=== PATIENT | female | born 1990 | race Caucasian/White ===

== ENCOUNTER 2017-09-30 12:00 | Inpatient (IN) | payer BC, OTHER ==
[~2017-09-30] VITALS: Ht 172.7 cm; Wt 70.3 kg
--- NOTE | 2017-09-30 14:00 | NUR ---
PREADMISSION NOTE Patient met in Intake, vitals BP 107/73, pulse 84, RR 16, oxygen saturation 99 percent on room air. Pt stating she has allergy to penicillin, reaction is a rash, last exposure as an . Pt admitted for dependency and medically supervised detox from Heroin, ETOH, crack cocaine, Xanax. Pt very irritable, anxiou, telling nurse to "hurry up" multiple times to intake questions Stated she was going to leave and needed to speak to the director. Pt would not answer any further questions from RN. RN notified DON of Pt stating she was going to leave and request to speak to director. Above endorsed to GRETA Patino, who is now assigned as nurse for the patient.
[2017-09-30] MEDS ORDERED: DICYCLOMINE HCL 20 MG TABLET PO PRN (14:15)
[2017-09-30] MEDS ORDERED: ONDANSETRON 4 MG/2 ML VIAL IM PRN (14:15)
[2017-09-30] MEDS ORDERED: ONDANSETRON ODT 4 MG TAB.RAPDIS SL PRN (14:15)
[2017-09-30] MEDS ORDERED: diphenhydrAMINE 50 MG CAPSULE PO PRN (14:15)
[2017-09-30] MEDS ORDERED: MAG HYDROX/AL HYDROX/SIMETH 30 ML LIQUID UDC PO PRN (14:15)
[2017-09-30] MEDS ORDERED: LOPERAMIDE HCL 2 MG CAPSULE PO PRN ×2 (14:15)
[2017-09-30] MEDS ORDERED: MIRALAX 17 GM POWD.PACK PO PRN (14:15)
[2017-09-30] MEDS ORDERED: BUPRENORPHINE HCL 2 MG TAB.SUBL SL PRN (14:15)
[2017-09-30] MEDS ORDERED: NICOTINE 14 MG/24HR PATCH TD PRN (14:30)
[2017-09-30] MEDS ORDERED: NICOTINE POLACRILEX 4 MG GUM-PK OF TEN BC PRN (14:30)
[2017-09-30] MEDS ORDERED: IBUP-1953 PO (14:34)
[2017-09-30] MEDS ORDERED: BUPR100T6 PO (14:34)
[2017-09-30] MEDS ORDERED: CLIN300C11 PO (14:34)
[2017-09-30] MEDS ORDERED: CLON0.1T PO (14:34)
[2017-09-30] MEDS ORDERED: TRAZ-144 PO (14:34)
[2017-09-30 14:40] VITALS: BP 107/73
[2017-09-30 14:43] LABS: *URINE HCG, QUAL NEGATIVE (NEGATIVE)
[2017-09-30] MEDS ORDERED: DIAZEPAM 10 MG TABLET PO SCH ×2 (15:00→21:00)
[2017-09-30] MEDS: BUPRENORPHINE HCL 2 MG TAB.SUBL SL SCH ×3 (15:01→21:37)
[2017-09-30 15:58] LABS: *AMPHETAMINE, URINE NEGATIVE (NEGATIVE); *BARBITURATE, URINE NEGATIVE (NEGATIVE); *CANNABINOID, URINE NEGATIVE (NEGATIVE); *COCCAINE, URINE POSITIVE (NEGATIVE); *OPIATE, URINE NEGATIVE (NEGATIVE); *PHENCYCLIDINE SCREEN,URINE NEGATIVE (NEGATIVE)
[2017-09-30 16:00] VITALS: BP 104/66
--- NOTE | 2017-09-30 16:20 | NUR ---
ADMISSION: A 27 Y O FEMALE ADMITTED FOR MEDICALLY SUPERVISED WITHDRAWAL OF BENZO/ETOH/OPIATE/COCAINE DEPENDENCE. SHE REPORTS SNORTING XANAX 12-20 MG DAILY X 6 MONTHS. LAST USES AT 0100 ON 09/29/17. SHE ASLO DRINKS 1 PINT OF RUM DAILY AND LAST DRANK AT 0100 ON 09/29/17. SHE REPORTS USING HEROIN IV 2 GMS DAILY. LAST USED AT 0100 ON 09/29/17. SHE ALSO REPORTS SNORTING/SMOKING COCAINE. LAST USED 0100 AT 09/30/17. 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 HOME MEDS BROUGHT IN AND RECONCILED. PT PRESENTS WITH IRRITABLE MOOD AND CONGRUENT AFFECT. SHE IS FIDGETY,RESTLESS AND C/O BODY ACHES,SWEATS CHILLS, AND ANXIETY. COWS 13 CIWA 13. SHE DENIES SZ HX. SHE DENIES PRIMARY MD. SHE DENIES S/I AND H/I. MD ASSESSED PT AND PLACED ORDERS FOR VALIUM/SUBUTEX TAPER. ADMINISTERED VALIUM AND SUBUTEX ORDERED TO MANAGE S/S OF W/D. ORIENTED PT TO STAFF AND UNIT. REASSURED PT THAT NURSING STAFF IS AVAILABLE 24 HOURS. WILL CONTINUE TO MONITOR AND OFFER SUPPORT.
[2017-09-30 16:38] LABS: EOSINOPHILS # (AUTO) 0.2 K/uL (0.0-0.7); EOSINOPHILS % (AUTO) 4.7 % (0.0-7.0); HEMATOCRIT 36.3 % (37-47); HEMOGLOBIN 12.1 G/DL (12.0-16.0); LYMPHOCYTES # (AUTO) 1.7 K/UL (0.8-4.8); LYMPHOCYTES % (AUTO) 39.6 % (20.5-51.5); MEAN CORPUSCULAR HEMOGLOBIN 28.4 UUG (27.0-31.0); MEAN CORPUSCULAR HGB CONC 33 g/dL (32.0-37.0); MEAN CORPUSCULAR VOLUME 85.1 FL (81.0-99.0); MONOCYTES # (AUTO) 0.4 K/UL (0.1-1.30); MONOCYTES % (AUTO) 10.3 % (0.0-11.0); NEUTROPHILS # (AUTO) 1.9 K/UL (1.8-8.9); NEUTROPHILS % (AUTO) 44.4 % (38.5-71.5); PLATELET COUNT (AUTO) 316 K/UL (150-450); RED BLOOD CELL COUNT(AUTO) 4.26 MIL/UL (4.2-5.4); WHITE BLOOD COUNT (AUTO) 4.2 K/UL (4.0-11.2)
[2017-09-30 16:47] LABS: ETHANOL < 3 MG/DL (0-0)
[2017-09-30 16:48] LABS: ALANINE AMINOTRANSFERASE 622 U/L (14-59); ALKALINE PHOSPHATASE 129 U/L (50-136); ASPARTATE AMINOTRANSFERASE 315 U/L (15-37); BILIRUBIN,TOTAL 0.6 mg/dL (0.2-1.0); CARBON DIOXIDE 27 mmol/L (21-32); CHLORIDE 103 mmol/L (98-107); CREATININE 1.1 mg/dL (0.6-1.3); GLUCOSE 122 mg/dL (74-106); POTASSIUM 3.8 mmol/L (3.5-5.1); TOTAL PROTEIN, SERUM 7.8 g/dL (6.4-8.2); UREA NITROGEN, BLOOD 16 mg/dL (7-18)
[2017-09-30] MEDS ORDERED: LORAZEPAM 1 MG TABLET PO PRN ×2 (17:00)
[2017-09-30] MEDS: LORAZEPAM 1 MG TABLET PO SCH ×2 (18:09→21:36)
[2017-09-30] MEDS: GABAPENTIN 400 MG CAPSULE PO SCH ×2 (18:09→21:38)
--- NOTE | 2017-09-30 18:39 | NUR ---
END OF SHIFT: NEW ADMISSION STARTED ON ATIVAN/SUBUTEX THIS AFTERNOON AND EFFECTIVE. PT'S LAST COWS 10 CIWA 5. PT IS EATING 75% OF MEALS AND STATES SHE FEELS BETTER DUE TO MEDICATION. WILL PASS SHIFT REPORT TO ONCOMING NIGHT NURSE.
--- NOTE | 2017-09-30 19:30 | NUR ---
Start of Shift Notes Received a 27 y/o female admitted 09/30/2017 for Opiates, ETOH, Benzos, cocaine dependence. Px has allergy on PCN, on regular diet and on Full Code. No seizure hx but on fall precaution. During the rounds at 1930, px appears emotional, anxious and depressed. Px has healing wound with 6 efe on medial middle right thigh. Px has generalized body aches of 7/10. COWS 7, CIWA 7. All safety measures in place per hospital policy. Bed in lowest position, side rails up x2, call-light within reach. We'll continue to monitor.
[2017-09-30 20:00] VITALS: BP 110/72
[2017-09-30] MEDS: TOPIRAMATE 25 MG TABLET PO SCH (21:37)
[2017-09-30] MEDS: CLONIDINE HCL 0.1 MG TABLET PO PRN (21:37)
--- NOTE | 2017-09-30 21:37 | NUR ---
PRN Clonidine Px verbalized increase anxiety and requested to have Clonidine. Clonidine 0.1 mg/tab, 1 tab given PO as PRN med. We'll continue to monitor.
[2017-10-01] VITALS: BP 113/90
--- NOTE | 2017-10-01 | NUR ---
COWS and CIWA deferred COWS and CIWA deferred due to the px is sleeping, to assess if the px is awake per doctor's order. Respirations are even and unlabored. We'll continue to monitor.
[2017-10-01 04:00] VITALS: BP 99/60
--- NOTE | 2017-10-01 07:27 | NUR ---
End of Shift Notes Received a 27 y/o female admitted 09/30/2017 for Opaiates, ETOH, Benzos dependence. Px has allergy on PCN, on regular diet and on Full Code. No seizure hx but on fall precaution. During the shift, px appears emotional, anxious and depressed. Px has healing wound with 6 efe on medial middle right thigh. Px has generalized body aches of 7/10. Last COWS 7, CIWA 7. Oral intake of 700 ml, voided 2x, no BM. Slept for 6 hrs. All safety measures in place per hospital policy. Bed in lowest position, side rails up x2, call-light within reach. We'll continue to monitor.
[2017-10-01 08:00] VITALS: BP 99/66
--- NOTE | 2017-10-01 08:00 | NUR ---
START OF SHIFT NOTE 27 year old female admitted 09/30/17 for depended and medical detox from Xanax, ETOH, Heroin and Cocaine. History of Hep C, Depression. Inner right thigh with wound with partial efe and area with yellow eschar. [place] to be removed today. Report received from night RN. Last COWS 7 and CIWA 7 at 8 PM. Slept 6 hours. Given Clonidine PRN x 1. 0800 nursing rounds with pt sleeping, alert to verbal, bed in low position and locked, side rails up x 2, call gonzalez within reach. Will continue to monitor.
[2017-10-01] MEDS: GABAPENTIN 400 MG CAPSULE PO SCH ×3 (08:46→17:00)
[2017-10-01] MEDS: LORAZEPAM 1 MG TABLET PO SCH ×3 (08:46→20:57)
[2017-10-01] MEDS: MULTIVITAMINS,THERAPEUTIC TABLET PO SCH (08:46)
[2017-10-01] MEDS: TOPIRAMATE 25 MG TABLET PO SCH ×2 (08:46→20:58)
[2017-10-01] MEDS: BUPRENORPHINE HCL 2 MG TAB.SUBL SL SCH ×4 (08:47→20:58)
[2017-10-01] MEDS ORDERED: DIAZEPAM 10 MG TABLET PO SCH (09:00)
[2017-10-01] MEDS ORDERED: TUBERCULIN,PURIF.PROT.DERIV. 5 TU/0.1 ML TEST ID ONE (09:00)
[2017-10-01 11:07] LABS: HEPATITIS B SURFACE AG Negative (Negative)
[2017-10-01 12:00] VITALS: BP 99/55
[2017-10-01] MEDS ORDERED: TRAZODONE 50 MG TABLET PO PRN (15:15)
[2017-10-01 16:00] VITALS: BP 106/78
[2017-10-01] MEDS: buPROPion SR 100 MG TABLET.SA PO SCH (16:10)
--- NOTE | 2017-10-01 17:44 | NUR ---
MEDICATION REFUSED Pt states she feels over sedated. Refuses medications other than ativan and Subutex. RN notes pt very drowsy, difficult to keep eyes open, falling asleep mid-sentence. Pt directed to lie down. Awakens to verbal but when not stimulated falls asleep. BP 110/72, RR 16, O2 sat 100 percent, pulse 78.
--- NOTE | 2017-10-01 19:00 | NUR ---
Start of Shift Patient Received. Patient is a 27 year old female that was admitted on 09/30/17 for Benzos, ETOH, and Opiate Dependence under the care of Dr. Brown. Patient is currently receiving a 5 day Subutex and 5 day Ativan taper. Patient verbalizes allergies to PCN, wishes to be full code, following a regular diet, placed on fall precautions. Skin is noted with 6 Twila to the right inner leg due to injury priot to admission with no new orders noted or endorsed over. Past medical history of HCV and Depression. Per endorsement, patient noted with multiple epsiodes of behavior with administration staff aware. Last noted COWS 1 and CIWA 2. All needs attended to promptly. Will continue plan of care as ordered.
--- NOTE | 2017-10-01 19:37 | NUR ---
END OF SHIFT NOTE 27 year old female admitted 09/30/17 for depended and medical detox from Xanax, ETOH, Heroin and Cocaine. History of Hep C, Depression. Inner right thigh with wound with partial efe and area with yellow eschar vs. yellow scab. RN asked Dr. Brown this am to look at wound and also requested if RN was to remove efe or if MD wound be removing efe. MD stated he would look at wound. Pt very drowsy at 1700, 1700 dose neurontin not given due to drowsiness and Pt stating she did not want any medication other than ativan and Subutex. At 1840, pt came to nurse station demanding her medication and when next doses of medication would be given. Pt requesting 1700 dose of neurontin. Neurontin given. Last COWS 1, last CIWA 2 Report given to night RN. Bed in low position and locked, side rails up x 2, call gonzalez within reach.
[2017-10-01 20:44] VITALS: BP 120/84
[2017-10-01] MEDS: MELATONIN 3 MG TABLET PO SCH (20:57)
[2017-10-01] MEDS: GABAPENTIN 300 MG CAPSULE PO SCH (20:58)
[2017-10-02 00:29] VITALS: BP 105/72
[2017-10-02] MEDS: IBUPROFEN 600 MG TABLET PO PRN ×2 (03:59→11:02)
[2017-10-02 04:00] VITALS: BP 111/73
[2017-10-02] MEDS: CLONIDINE HCL 0.1 MG TABLET PO PRN ×2 (04:03→11:03)
--- NOTE | 2017-10-02 04:05 | NUR ---
PRN Medication Administration Patient noted awake and verbalizing increased anxiety, agitation, and pain 5/10 due to toothache. Patient given PRN Motrin and Clonidine. Will continue to monitor for effectiveness of medication.
--- NOTE | 2017-10-02 05:00 | NUR ---
PRN Medication Reassessment Patient is in bed sleeping. Breathing even and non labored. No signs of pain or discomfort noted. Patient was given PRN Clonidine for increased anxiety and agitation. PRN Motrin for pain 5/10 due to toothache. Medications noted to be effective as evidence of patient sleeping well with no interruptions.
--- NOTE | 2017-10-02 07:02 | NUR ---
End of Shift Patient is in bed sleeping. Breathing even and non labored. No signs of pain or discomfort noted. Patient is a 27 year old female that was admitted on 09/30/17 for Benzos, ETOH, and Opiate Dependence and is currently receiving a 5 day Subutex and 5 day Ativan taper. Allergies to PCN, Full Code, Regular Diet, placed on fall precautions. Skin is noted with 6 Twila to the right inner leg due to injury prior to admission. Past medical history of HCV and Depression. Patient received PRN Motrin for toothache and Clonidine for increased agitation and anxiety. PRN medications noted to be effective. No episodes of behavior noted. Last noted COWS 4 and CIWA 4. All needs attended to promptly. Will endorse to continue plan of care as ordered.
--- NOTE | 2017-10-02 07:55 | NUR ---
START OF SHIFT Rcvd endorsement from ongoing nurse, client is in room, she is a/o x 4, she presents with anxious mood, flat affect, flushed face, moist skin, goosebump, and dilated pupils. She reports chills, cold, abdominal cramps, restless legs, and fatigue. She denies any N/V/D. She denies any SI/HI. Encourage client to attend to group therapy for skills to maintain sober. Encourage client to increase PO fluid intake as tolerated to facilitate detox. Client is a 27 y/o female, admitted to [facility] for withdrawal from alcohol, alprazolam and heroin. She is on 5 day Ativan/ 5 day Subutex taper, tolerating well (day 2). Last CIWA 4 /COWS 4 @ 0400. PRN Clonidine 0.1mg PO for anxiety, agitation, chills, sweats, restlessness, Motrin 600mg PO for left lower toothache, noted effective. Client slept 7 hrs. She denies a hx of withdrawal-induced seizures, Client reports allergy to Penicillin , she is full code, regular diet. Side rails x 2 up/padded for seizure precautions. Call light within reach.
[2017-10-02 08:01] VITALS: BP 105/64
[2017-10-02] MEDS: LORAZEPAM 1 MG TABLET PO SCH ×3 (08:22→17:30)
[2017-10-02] MEDS: buPROPion SR 100 MG TABLET.SA PO SCH (08:23)
[2017-10-02] MEDS: MULTIVITAMINS,THERAPEUTIC TABLET PO SCH (08:23)
[2017-10-02] MEDS: GABAPENTIN 400 MG CAPSULE PO SCH ×3 (08:24→17:30)
[2017-10-02] MEDS: TOPIRAMATE 25 MG TABLET PO SCH ×2 (08:24→21:07)
[2017-10-02] MEDS ORDERED: BUPRENORPHINE HCL 2 MG TAB.SUBL SL SCH (09:00)
[2017-10-02] MEDS ORDERED: DIAZEPAM 5 MG TABLET PO SCH (09:00)
[2017-10-02] MEDS: ACETAMINOPHEN 325 MG TABLET PO PRN ×2 (09:30→17:30)
--- NOTE | 2017-10-02 09:30 | NUR ---
PRN Tylenol 650mg PO for left lower toothache 04/02. Will continue to monitor. Call light within reach.
--- NOTE | 2017-10-02 10:30 | NUR ---
Reassessment PRN Tylenol 650mg PO pain 12/03, but tolerable.
--- NOTE | 2017-10-02 11:02 | NUR ---
PRN Motrin 600mg PO, Clonidine 0.1mg PO for toothache (left lower), 6/10, irritability and anxiety respectively. Call light within reach.
[2017-10-02] MEDS ORDERED: LORAZEPAM 1 MG TABLET PO ONE (12:00)
--- NOTE | 2017-10-02 12:02 | NUR ---
Reassessment PRN Motrin 600mg PO, Clonidine 0.1mg PO toothache 01/03, she appears less irritable and less anxious.
[2017-10-02 12:38] VITALS: BP 103/63
[2017-10-02] MEDS: BENZOCAINE ORAL CARE 12 ML BOTTLE MM PRN ×2 (13:43→21:59)
--- NOTE | 2017-10-02 13:43 | NUR ---
PRN Ambesol MM to left lower tooth, pain 4/10.
--- NOTE | 2017-10-02 14:43 | NUR ---
Reassessment PRN Ambesol MM to left lower tooth, pain 210, but tolerable.
[2017-10-02] MEDS: CLINDAMYCIN HCL 300 MG CAPSULE PO SCH ×2 (14:59→21:06)
[2017-10-02] MEDS: BUPRENORPHINE HCL 2 MG TAB.SUBL SL SCH ×2 (14:59→21:07)
[2017-10-02 16:55] VITALS: BP 105/64
--- NOTE | 2017-10-02 17:30 | NUR ---
PRN Tylenol 650mg PO for left lower toothache 06/02. Will continue to monitor. Call light within reach.
--- NOTE | 2017-10-02 18:30 | NUR ---
Reassessment PRN Tylenol 650mg PO pain 12/03, but tolerable.
--- NOTE | 2017-10-02 19:30 | NUR ---
END OF SHIFT Client is a 27 y/o female, admitted to [facility] for withdrawal from alcohol, alprazolam and heroin. She is on 5 day Ativan/ 5 day Subutex taper, tolerating well (day 2). Last CIWA 4 /COWS 4 @ 0400. PRN Clonidine 0.1mg PO for anxiety, agitation, chills, sweats, restlessness, Motrin 600mg, Tylenol 650mg PO x 2, Ambesol MM for left lower toothache, noted effective. Client not compliant with group therapy d/t withdrawal symptoms. She denies a hx of withdrawal-induced seizures, Client reports allergy to Penicillin , she is full code, regular diet. Side rails x 2 up/padded for seizure precautions. Call light within reach.
[2017-10-02 20:00] VITALS: BP 114/73
--- NOTE | 2017-10-02 20:00 | NUR ---
Start of Shift Pt is a 27 year old female admitted for Benzo/ETOH/Opiate dependence, placed on 5 day Ativan and 5 day Subutex taper. Pt reports using Xanax (nasal) 12-20mg, ETOH 1 pint, Heroin IV 1gm and Cocaine (nasal/smoke) 1 gm. PMH: HCV, depression, efe to right inner thigh (removed on 10/02/2017) and hx of seizure. Pt reports allergies to PCN, fall/seizure precautions, regular diet and full code. Upon assessment, pt is agitated/irritated, reports feeling anxious, is demanding in loud tone voice, reports muscle/joint aches, skin is flushed/clammy, tremors felt, respirations even/unlabored, denies n/v/d, denies SOB/chest pain, medications due. Safety measures in place, call light within reach, side rails up x2, bed locked and in low position. Will continue to monitor.
[2017-10-02] MEDS ORDERED: LORAZEPAM 1 MG TABLET PO SCH (21:00)
[2017-10-02] MEDS: MELATONIN 3 MG TABLET PO SCH (21:00)
[2017-10-02] MEDS: GABAPENTIN 300 MG CAPSULE PO SCH (21:07)
[2017-10-02] MEDS: LACTOBACILLUS RHAMNOSUS GG 1 EACH CAPSULE PO SCH (21:07)
--- NOTE | 2017-10-02 21:59 | NUR ---
PRN Administration Benzocaine given for left lower tooth ache, rated 5/[address], will continue to monitor.
--- NOTE | 2017-10-02 22:59 | NUR ---
PRN Reassessment Pt reports benzocaine effective. Reports no more pain. Safety measures in place, will continue to monitor.
[2017-10-02] MEDS ORDERED: diphenhydrAMINE 50 MG CAPSULE PO ONE (23:35)
[2017-10-02] MEDS ORDERED: diphenhydrAMINE 50 MG CAPSULE PO PRN (23:35)
[2017-10-03] VITALS: BP 113/68
[2017-10-03] MEDS ORDERED: diphenhydrAMINE 50 MG CAPSULE ONE (00:06)
--- NOTE | 2017-10-03 00:14 | NUR ---
PRN Administration Pt refused previously scheduled Melatonin. Benadryl 50mg x1 administered for sleep Safety measures in place, will continue to monitor.
--- NOTE | 2017-10-03 01:14 | NUR ---
PRN Reassessment Upon reassessment, pt is in bed sleeping, respirations even/unlabored. Safety measures in place, will continue to monitor.
--- NOTE | 2017-10-03 04:00 | NUR ---
Pt refused to be woken up for 0400 VS. COWS/CIWA deferred due to pt sleeping, to assess while pt is awake as ordered. Safety measures in please, will continue to monitor.
--- NOTE | 2017-10-03 07:00 | NUR ---
End of Shift Pt is a 27 year old female admitted for Benzo/ETOH/Opiate dependence, placed on 5 day Ativan and 5 day Subutex taper. Pt reports using Xanax (nasal) 12-20mg, ETOH 1 pint, Heroin IV 1gm and Cocaine (nasal/smoke) 1 gm. PMH: HCV, depression, efe to right inner thigh (removed on 10/02/2017) and hx of seizure. Pt reports allergies to PCN, fall/seizure precautions, regular diet and full code. During shift, pt was agitated/irritated, reported feeling anxious, was demanding in loud tone voice, reported muscle/joint aches, skin is flushed/clammy, tremors felt scheduled taper medications administered, CIWA 7 and COWS 7. Benzocaine PRN for tooth ache and Benadryl 50mg x1 administered for sleep. Pt slept for 5 hours, intake of 2091ml PO, voids x4 and stool x0. Safety measures in place, call light within reach, side rails up x2, bed locked and in low position. Endorsed to day shift nurse.
--- NOTE | 2017-10-03 07:37 | NUR ---
START OF SHIFT Rcvd endorsement from ongoing nurse, client is in room, she is a/o x 4, she presents with depressed mood, enlarged pupils. She reports body aches,restless legs and fatigue. She denies any N/V/D. She denies any SI/HI. Client is on Clindamycin 300mg PO TID for infection on R inner thigh, 6 efe removed 10/02/17, scant purulent drainage noted. Encourage client to attend to group therapy for skills to maintain sober. Encourage client to increase PO fluid intake as tolerated to facilitate detox. Client is a 27 y/o female, admitted to [facility] for withdrawal from alcohol, alprazolam and heroin. She is on 5 day Ativan/ 5 day Subutex taper, tolerating well (day 3). Last CIWA 7 /COWS 7 @ 2400. PRN Benadryl 50mg PO for inability to sleep, slept 5 hrs. She denies a hx of withdrawal-induced seizures, Client reports allergy to Penicillin , she is full code, regular diet. Side rails x 2 up/padded for seizure precautions. Call light within reach.
--- NOTE | 2017-10-03 08:45 | NUR ---
Zero induration noted on L forearm TB site
[2017-10-03 08:55] VITALS: BP 123/87
[2017-10-03] MEDS ORDERED: DIAZEPAM 5 MG TABLET PO SCH (09:00)
[2017-10-03] MEDS: GABAPENTIN 400 MG CAPSULE PO SCH (09:15)
[2017-10-03] MEDS: TOPIRAMATE 25 MG TABLET PO SCH ×2 (09:16→20:44)
[2017-10-03] MEDS: MULTIVITAMINS,THERAPEUTIC TABLET PO SCH (09:16)
[2017-10-03] MEDS: LORAZEPAM 1 MG TABLET PO SCH ×2 (09:16→14:33)
[2017-10-03] MEDS: CLINDAMYCIN HCL 300 MG CAPSULE PO SCH ×3 (09:16→20:45)
[2017-10-03] MEDS: LACTOBACILLUS RHAMNOSUS GG 1 EACH CAPSULE PO SCH ×2 (09:16→20:43)
[2017-10-03] MEDS: BUPRENORPHINE HCL 2 MG TAB.SUBL SL SCH ×3 (09:16→20:46)
[2017-10-03] MEDS: buPROPion SR 100 MG TABLET.SA PO SCH (09:16)
[2017-10-03] MEDS: BENZOCAINE ORAL CARE 12 ML BOTTLE MM PRN ×2 (09:26→17:53)
[2017-10-03] MEDS: IBUPROFEN 600 MG TABLET PO PRN (09:26)
[2017-10-03] MEDS: CLONIDINE HCL 0.1 MG TABLET PO PRN ×2 (09:26→18:34)
--- NOTE | 2017-10-03 09:26 | NUR ---
PRN Clonidine 0.1mg PO, Motrin 600mg PO and Anbesol MM administered for anxiety, irritability, and Left lower toothache 07/03 respectively. Call light within reach.
--- NOTE | 2017-10-03 10:26 | NUR ---
Reassessment PRN Clonidine 0.1mg PO, Motrin 600mg PO and Anbesol MM client expressers relief from anxiety, irritability, and decreased Left lower toothache 2/10, but tolerable.
[2017-10-03] MEDS: KETOROLAC TROMETHAMINE 30 MG INJ IM PRN ×2 (11:40→14:33)
--- NOTE | 2017-10-03 11:40 | NUR ---
ONE TIME Subutex 4mg SL, Ativan 2mg PO for COWS 12,CIWA 10 anxiety, irritability,
[2017-10-03 12:00] VITALS: BP 113/77
[2017-10-03] MEDS ORDERED: BUPRENORPHINE HCL 2 MG TAB.SUBL SL ONE (12:00)
[2017-10-03] MEDS ORDERED: LORAZEPAM 1 MG TABLET PO ONE (12:00)
--- NOTE | 2017-10-03 12:10 | NUR ---
Reassessment ONE TIME Subutex 4mg SL COWS 8.
--- NOTE | 2017-10-03 12:40 | NUR ---
Reassessment ONE TIME Ativan 2mg PO CIWA 7.
[2017-10-03] MEDS: GABAPENTIN 300 MG CAPSULE PO SCH ×2 (14:32→20:43)
[2017-10-03] MEDS: BACLOFEN 10 MG TABLET PO SCH ×2 (14:33→20:44)
--- NOTE | 2017-10-03 14:33 | NUR ---
PRN Toradol 30mg Inj IM administered to R buttock for toothache 09/02.
--- NOTE | 2017-10-03 15:03 | NUR ---
Reassessment PRN Toradol 30mg Inj IM effective, toothache 0/10.
[2017-10-03 16:55] VITALS: BP 108/83
--- NOTE | 2017-10-03 17:53 | NUR ---
PRN Anbesol MM administered Left lower toothache 04/02. Call light within reach.
--- NOTE | 2017-10-03 18:34 | NUR ---
PRN Clonidine 0.1mg PO administered for anxiety, irritability. Call light within reach.
--- NOTE | 2017-10-03 18:53 | NUR ---
Reassessment PRN Anbesol MM effective 0/10.
--- NOTE | 2017-10-03 19:16 | NUR ---
END OF SHIFT Client is a 27 y/o female, admitted to [facility] for withdrawal from alcohol, alprazolam and heroin. She is on 5 day Ativan/ 5 day Subutex taper, tolerating well (day 3). Last CIWA 6 /COWS 7 @ 1600. PRN Clonidine 0.1mg PO for anxiety, agitation @ 0926 noted effective, another dose given @ 1834 incoming nurse to reassess. Motrin 600mg PO for headache, Ambesol MM x 2 and Toradol 30mg Inj IM for left lower toothache, noted effective. Client not compliant with group therapy d/t withdrawal symptoms. She denies a hx of withdrawal-induced seizures, Client reports allergy to Penicillin , she is full code, regular diet. Side rails x 2 up/padded for seizure precautions. Call light within reach.
[2017-10-03 20:00] VITALS: BP 109/77
--- NOTE | 2017-10-03 20:00 | NUR ---
Start of Shift Pt is a 27 year old female admitted for Benzo/ETOH/Opiate dependence, placed on 5 day Ativan and 5 day Subutex taper. Pt reports using Xanax (nasal) 12-20mg, ETOH 1 pint, Heroin IV 1gm and Cocaine (nasal/smoke) 1 gm. PMH: HCV, depression, efe to right inner thigh (removed on 10/02/2017) and hx of seizure. Pt reports allergies to PCN, fall/seizure precautions, regular diet and full code. Upon assessment, pt is irritated, demanding in loud tone voice, reports feeling chills, skin is clammy, respirations even/unlabored, denies n/v/d, denies SOB/chest pain, medications due. Safety measures in place, call light within reach, side rails up x2, bed locked and in low position. Will continue to monitor.
[2017-10-03] MEDS: MELATONIN 3 MG TABLET PO SCH (20:46)
[2017-10-03] MEDS ORDERED: LORAZEPAM 1 MG TABLET PO SCH (21:00)
--- NOTE | 2017-10-03 21:40 | NUR ---
Pt placed on room restriction due to non-compliance with rules and regulation regarding physical contact with other clients.
[2017-10-04] VITALS: BP 103/71
--- NOTE | 2017-10-04 04:00 | NUR ---
COWS/CIWA deferred due to pt sleeping, to assess while pt is awake as ordered. Pt refused to be woken up for 0400 VS. Safety measures in please, will continue to monitor.
--- NOTE | 2017-10-04 07:00 | NUR ---
End of Shift Pt is a 27 year old female admitted for Benzo/ETOH/Opiate dependence, placed on 5 day Ativan and 5 day Subutex taper. Pt reports using Xanax (nasal) 12-20mg, ETOH 1 pint, Heroin IV 1gm and Cocaine (nasal/smoke) 1 gm. PMH: HCV, depression, efe to right inner thigh (removed on 10/02/2017) and hx of seizure. Pt reports allergies to PCN, fall/seizure precautions, regular diet and full code. During shift, pt was irritated, demanding in loud tone voice, reports feeling chills, skin is clammy scheduled taper medications administered, COWS 5 and CIWA 6. No PRN medications administered during shift. Pt placed on room restriction due to non-compliance with rules and regulation regarding physical contact with other clients. Pt slept for 10 hours, intake of 1200 ml PO, voids x3 and stool x0. Safety measures in place, call light within reach, side rails up x2, bed locked and in low position. Endorsed to day shift nurse.
--- NOTE | 2017-10-04 07:46 | NUR ---
START OF SHIFT Pt is a 27 yr old female, A&Ox3. Pt was admitted on 09/30/17 for Benzo/ETOH/Opiate Dependence and is on 5 day Subutex and 5 day Ativan taper as ordered. Medication jean carlos well. Received report from [facility] chemist nurse. No PRN's were given during the night. Pt slept for 8 hrs. Last COWS score was 5 and CIWA score was 6 at 0000. Pt is full code, regular diet and allergies to PCN. Pt is on Clindamycin for right inner thigh infection. no adverse reaction noted. Pt is on fall and seizure precautions. Pt is currently in bed, resting with respirations even and unlabored. No acute distress noted. Skin is warm and dry to touch. Safety precautions are observed. Pt remains on room restriction for non-compliance of rules and regulations of the unit. Call light is within reach. Will continue to monitor.
[2017-10-04 08:00] VITALS: BP 107/58
[2017-10-04] MEDS ORDERED: LORAZEPAM 1 MG TABLET PO SCH (09:00)
[2017-10-04] MEDS ORDERED: DIAZEPAM 5 MG TABLET PO SCH (09:00)
[2017-10-04] MEDS ORDERED: BUPRENORPHINE HCL 2 MG TAB.SUBL SL SCH (09:00)
[2017-10-04] MEDS: LACTOBACILLUS RHAMNOSUS GG 1 EACH CAPSULE PO SCH (09:39)
[2017-10-04] MEDS: MULTIVITAMINS,THERAPEUTIC TABLET PO SCH (09:39)
[2017-10-04] MEDS: TOPIRAMATE 25 MG TABLET PO SCH (09:40)
[2017-10-04] MEDS: BUPRENORPHINE HCL 2 MG TAB.SUBL SL SCH ×2 (09:40→14:26)
[2017-10-04] MEDS: CLINDAMYCIN HCL 300 MG CAPSULE PO SCH ×2 (09:40→14:26)
[2017-10-04] MEDS: BACLOFEN 10 MG TABLET PO SCH (09:40)
[2017-10-04] MEDS: GABAPENTIN 300 MG CAPSULE PO SCH ×2 (09:40→14:26)
[2017-10-04] MEDS: buPROPion SR 100 MG TABLET.SA PO SCH (09:40)
[2017-10-04] MEDS: LORAZEPAM 1 MG TABLET PO SCH ×2 (09:41→14:26)
[2017-10-04 12:00] VITALS: BP 145/78
[2017-10-04] MEDS ORDERED: LORAZEPAM 1 MG TABLET PO ONE ×2 (12:30→17:15)
[2017-10-04] MEDS ORDERED: BUPRENORPHINE HCL 2 MG TAB.SUBL SL ONE (12:30)
[2017-10-04] MEDS: IBUPROFEN 600 MG TABLET PO PRN (14:33)
[2017-10-04] MEDS: BENZOCAINE ORAL CARE 12 ML BOTTLE MM PRN (14:34)
--- NOTE | 2017-10-04 14:34 | NUR ---
PRN GIVEN Pt c/o headache and muscle ache. Motrin 600mg PO PRN was given as ordered. Pt also c/o left bottom tooth pain. Anbesol PRN was given as ordered. Medication jean carlos well. Encouraged increase fluid intake. Will continue to monitor.
[2017-10-04] MEDS ORDERED: BACLOFEN 20 MG TABLET PO SCH (15:00)
--- NOTE | 2017-10-04 15:10 | NUR ---
ENDORSEMENT GIVEN Endorsement given to RN nurse to continue with care.
--- NOTE | 2017-10-04 16:00 | NUR ---
Patient refused vital signs during a code morgan at this time talking about leaving. Doctor Stephanie was able to talk the patient out of leaving at this time.
[2017-10-04] MEDS ORDERED: GABAPENTIN 300 MG CAPSULE PO SCH (17:00)
--- NOTE | 2017-10-04 18:06 | NUR ---
Patient answers to CIWA questions inappropriately. Reassessment completed. CIWA score is 14.
--- NOTE | 2017-10-04 18:45 | NUR ---
Patient after being given alternative treatments and extra medical attention decided to leave against medical advice. The patient has been through 4 rehabilitation facilities in the past. She refuses to sign for all belongings and medications. Stable gait during ambulation appreciated. Stable vital signs despite refusal of the past vital sign set. Patient has no intravenous access. All belongings and medications collected by patient and she has them in her possession upon leaving the facility. Patient refused to remove her identification band. Patient provided opportunity to have aftercare. She refused. Patient refused follow up her care as directed. The patient refused any further treatment at present. Charge nurse, Darlene, and Doctor Stephanie made aware.
[2017-10-04] MEDS ORDERED: CLONIDINE HCL 0.1 MG TABLET PO SCH (21:00)
[2017-10-05] MEDS ORDERED: BUPRENORPHINE HCL 2 MG TAB.SUBL SL SCH (09:00)
[2017-10-05] MEDS ORDERED: LORAZEPAM 1 MG TABLET PO SCH (09:00)
== END 2017-10-04 18:41 | disposition left against medical advice (07) | DRG 894 ==
LOC: SRC 13:34
PROVIDERS: ADMIT Internal Medicine; ATTEND Internal Medicine
PROC: HZ2ZZZZ Detoxification Services for Substance Abuse Treatment (ICD-10-PCS; principal; 2017-09-30)
PROC: HZ31ZZZ Individual Counseling for Substance Abuse Treatment, Behavioral (ICD-10-PCS; 2017-10-02)
DX: F10.232 Alcohol dependence with withdrawal with perceptual disturbance (principal); F33.2 Major depressive disorder, recurrent severe without psychotic features; I15.9 Secondary hypertension, unspecified; F14.20 Cocaine dependence, uncomplicated; F13.232 Sedative, hypnotic or anxiolytic dependence with withdrawal with perceptual disturbance; Y90.9 Presence of alcohol in blood, level not specified; F17.210 Nicotine dependence, cigarettes, uncomplicated; F90.9 Attention-deficit hyperactivity disorder, unspecified type; Z88.0 Allergy status to penicillin; Z59.1 Inadequate housing; Z91.89 Other specified personal risk factors, not elsewhere classified; Z79.899 Other long term (current) drug therapy; F41.9 Anxiety disorder, unspecified; K04.7 Periapical abscess without sinus; B18.2 Chronic viral hepatitis C; R73.9 Hyperglycemia, unspecified
CPT/HCPCS: 36415; 80307; 80346; 80353; 83735; 84703; 85025; 86592; 86705; 86803; 87340; 87806; A9150; G0480; J1885; Q0163